=== PATIENT | female | born 1960 ===

== ENCOUNTER 2018-01-06 09:40 | Outpatient (CLI) | payer OTHER ==
[~2018-01-06] VITALS: Ht 152.4 cm; Wt 61.2 kg
== END 2018-01-06 10:00 | disposition home or self-care (01) ==
LOC: OFIC 805 09:40
DX: H93.11 Tinnitus, right ear (principal); H90.41 Sensorineural hearing loss, unilateral, right ear, with unrestricted hearing on the contralateral side; R42 Dizziness and giddiness; H61.23 Impacted cerumen, bilateral